=== PATIENT | female | born 1965 | race Caucasian/White ===

== ENCOUNTER 2018-01-23 14:51 | Outpatient (CLI) | payer OTHER | END 2018-01-23 14:52 | disposition home or self-care (01) | LOC: BICMAMMO 14:51 | PROVIDERS: ATTEND Internal Medicine Rheumatology | DX: M80.00XD Age-related osteoporosis with current pathological fracture, unspecified site, subsequent encounter for fracture with routine healing (principal); M47.892 Other spondylosis, cervical region | CPT/HCPCS: 77080 ==

== ENCOUNTER 2018-01-23 15:20 | Outpatient (CLI) | payer OTHER | END 2018-01-23 15:21 | disposition home or self-care (01) | LOC: BICRAD 15:20 | PROVIDERS: ATTEND Internal Medicine Rheumatology | DX: M05.79 Rheumatoid arthritis with rheumatoid factor of multiple sites without organ or systems involvement (principal); M47.892 Other spondylosis, cervical region | CPT/HCPCS: 72052 ==